=== PATIENT | male | born 1935 | race Caucasian/White ===

== ENCOUNTER → 2017-06-17 | Outpatient (CLI) | payer MEDICARE ==
--- NOTE | 2017-06-17 14:45 | EST ---
DATE OF SERVICE: 06/17/2017 TYPE OF REPORT: BREANNE STRESS TEST INDICATION: Chest pain. BASELINE HEART RATE: 66 BASELINE BLOOD PRESSURE: 130/77 MAXIMUM HEART RATE: 119 MAXIMUM BLOOD PRESSURE: 159/82 85% MPHR: 118 100% MPHR: 139 METS: 6.4 MAXIMUM STAGE REACHED: I TOTAL EXERCISE TIME: 4.39 Baseline EKG revealed normal sinus rhythm without significant ST-T changes. Patient walked on a standard Breanne protocol for 4 minutes, 40 seconds, achieved a maximum heart rate of 119 beats per minute which is 85% of predicted maximum, developed fatigue and shortness of breath but did not have angina. There was some baseline artifact but no significant ST-segment changes were noted. By EKG criteria, this is a negative stress test with limited exercise capacity. Rare PVC's were noted and patient had nondescript chest tightness that was not suggestive of angina. This is, therefore, a negative stress test with limited exercise capacity. FELTOND
== END ==
LOC: RADNMMAIN 10:38
PROVIDERS: ATTEND Internal Medicine
DX: I10 Essential (primary) hypertension (principal); E11.22 Type 2 diabetes mellitus with diabetic chronic kidney disease
CPT/HCPCS: 93017

== ENCOUNTER → 2017-07-02 | Outpatient (CLI) | payer MEDICARE ==
--- NOTE | 2017-07-02 21:30 | PN ---
DATE OF SERVICE: 07/02/2017 This patient is an 82-year-old gentleman who has been followed in the sleep center for treatment of obstructive sleep apnea/hypopnea syndrome. The patient continues to use his CPAP equipment every night for the whole night without without problems related to the pressure, but he is experiencing discomfort on the bridge of his nose secondary to his full-face mask. Sometimes his mask goes down more to the chin. He is also experiencing dryness in his mouth and lips. [place] Sleepiness Scale today is 6. MEDICATIONS: 1. Zocor. 2. Tamsulosin. 3. Enalapril. 4. Carvedilol. 5. Metformin. 6. Ditropan. 7. Flomax. 8. Aspirin. During physical exam, this pleasant 82-year-old gentleman is without distress. BP 121/60, HR 58, RR 16. Height 60-1/2 inches. Weight 263. BMI 35. Temperature 97.5. Oxygen saturation at room air 96%. HEENT: PERRLA. EOMI. Evaluation of oropharynx shows low position of soft palate. NECK: Supple. No JVD. Thyroid is not palpable. LUNGS: Clear to percussion and to auscultation. Good air exchange. No wheezing or rhonchi. HEART: S1, S2. No murmurs. ABDOMEN: Slightly obese. EXTREMITIES: No clubbing or cyanosis. INDUSTRIAL METHODS CONSULTANT: Awake, alert and oriented x3. Cranial nerves 2 to 7 intact. There is no fasciculation or atrophy noted. No focal deficits observed. IMPRESSION: 1. Obstructive sleep apnea-hypopnea syndrome. Patient continues to use his equipment every night, benefitting from treatment. He has some problems related to the mask and dryness in the mouth. 2. Obesity. 3. Hypertension. 4. Diabetes mellitus. 5. Status post right knee surgery. 6. Status post carotid endarterectomy. PLAN: 1. Patient was fitted with a different type of full-face mask, Radha View. He feels comfortable with that. Consequently I wrote a prescription for this mask. 2. Watching and losing weight. 3. Continue to use CPAP equipment every night for the whole night. 4. No driving if feeling any sleepiness. 5. Follow-up visit in one year or earlier if patient has any problem with treatment. Thank you very much for allowing me to participate in the management of your patient. Sincerely, Flaco Boyd MD, PhD, FAASM Diplomat of [place] [employer] Sleep Medicine Board by [place] [employer] [place] [employer] Group Insurance Specialist of [facility] [place] [facility]
== END | disposition home or self-care (01) ==
LOC: SLEEP 10:00
PROVIDERS: ATTEND Internal Medicine
DX: G47.33 Obstructive sleep apnea (adult) (pediatric) (principal); E66.9 Obesity, unspecified; I10 Essential (primary) hypertension; E11.9 Type 2 diabetes mellitus without complications; Z98.890 Other specified postprocedural states

== ENCOUNTER → 2018-06-30 | Outpatient (CLI) | payer MEDICARE ==
--- NOTE | 2018-06-30 17:09 | SFUN ---
SLEEP CENTER FOLLOW UP NOTE DATE OF SERVICE: 06/30/2018 83-year-old gentleman who has been followed in Sleep Center for treatment of obstructive sleep apnea-hypopnea syndrome. Patient continued to use his CPAP equipment every night for the whole night. Recently had some mild problems with his full face mask. He received different masks than he likes, but now he is fine. [place] Sleepiness Scale today is 8. I checked his CPAP unit. Usage 28/ nights for more than 4 hours every 6.7 hours. MEDICATIONS: Zocor, tamsulosin, enalapril, carvedilol, metformin, Ditropan, Flomax, aspirin. PHYSICAL EXAM: GENERAL Patient in no distress. VITAL SIGNS BP 122/66, HR 67, RR 16, height 6 feet 3/4 inch, weight 262.6, BMI 34.8, temperature 98.0, oxygen saturation on room air 96%. HEENT PERRLA, EOMI, evaluation of oropharynx showed low position of soft palate. NECK Supple, no JVD. Thyroid is not palpable. LUNGS Clear to percussion and to auscultation. Good air exchange. No wheezing or rhonchi. HEART S1, S2 regular. No murmurs, gallops, or rubs. ABDOMEN Soft and nontender. Bowel sounds are present. No organomegaly appreciated. EXTREMITIES No clubbing or cyanosis. MAGAZINE PUBLISHER Awake, alert, and oriented X3. Cranial nerves 2 to 7 intact. There is no fasciculation or atrophy. noted. No focal deficits observed. IMPRESSION: 1. Obstructive sleep apnea-hypopnea syndrome. Patient demonstrated 100% compliance with treatment benefitting from treatment. 2. Hypertension. 3. Obesity. 4. Diabetes mellitus. 5. Status post right knee surgery. 6. Status post carotid endarterectomy. PLAN: 1. Patient will continue to use CPAP equipment every night for the whole night. 2. Prescription for all necessary CPAP supplies including a fullface Radha View mask. 3. Watching and losing weight. 4. Sleep hygiene with regular time in bed for at least 8 hours. 5. No driving if feeling sleepiness. Thank you very much for allowing me to participate in management of your patient. Sincerely, Flaco Boyd MD, PhD, FAASM Diplomat of [place] [employer] [place] [employer] Medicine Insole Buffer of [facility] [place] MMODL / IJN: [id number] /
== END | disposition home or self-care (01) ==
LOC: SLEEP 15:00
PROVIDERS: ATTEND Internal Medicine
DX: G47.33 Obstructive sleep apnea (adult) (pediatric) (principal); I10 Essential (primary) hypertension; E66.9 Obesity, unspecified; E11.9 Type 2 diabetes mellitus without complications; Z68.34 Body mass index [BMI] 34.0-34.9, adult; Z96.651 Presence of right artificial knee joint; Z79.899 Other long term (current) drug therapy; Z79.84 Long term (current) use of oral hypoglycemic drugs; Z79.82 Long term (current) use of aspirin; Z99.89 Dependence on other enabling machines and devices; Z98.890 Other specified postprocedural states

== ENCOUNTER → 2018-08-13 | Outpatient (CLI) | payer MEDICARE ==
--- NOTE | 2018-08-14 14:15 | MR ---
EXAMINATION TYPE: MR knee LT wo con DATE OF EXAM: 08/13/2018 COMPARISON: Outside radiographs dated 07/21/2018 HISTORY: Pain in left knee TECHNIQUE: Multiplanar, multisequence imaging of the left knee is performed without IV contrast. FINDINGS: MEDIAL MENISCUS: Is a complex tear of the medial meniscus with oblique component involving the flame planer ior horn and longitudinal component involving the meniscal body with extent into the posterior horn a nd anterior horn. There is associated 4 mm meniscal extrusion and a 6 mm meniscal fragment seen later al to the medial tibial plateau caudal to the extruded meniscus. Radial tear is seen of the anterior horn and coronal image 17. LATERAL MENISCUS: Anterior and posterior horns are intact without tear. As increased signal of the po sterior horn of the lateral meniscus without continuity to the articular surface and compatible with meniscal degeneration. CRUCIATE LIGAMENTS: The anterior and posterior cruciate ligaments are intact. Increased signal is see n superficial and deep to the medial collateral ligament with subcutaneous edema however there is no discontinuity of the medial collateral ligament. There is also slight increased signal of the posteri or and deep fibers of the lateral collateral ligament COLLATERAL LIGAMENTS: The medial collateral ligament and lateral collateral ligament complex are inta ct however there is thickening and increased signal of the anterior cruciate ligament with a slight a bnormal angle.. EXTENSOR MECHANISM: Visualized quadriceps and patellar tendons are intact. EFFUSION: No significant suprapatellar joint effusion. POPLITEAL CYST: There is a small popliteal/Merlos's cyst with fluid extending along the medial aspect of the medial head of the gastrocnemius muscle although there is no abnormal signal within the gastr ocnemius. TRICOMPARTMENT SPACES: Mild joint space narrowing is seen of the medial compartment and patellofemora l compartment. Enthesophytes and subchondral cysts are noted of the quadriceps insertion. CARTILAGE: There is abnormal signal and cartilaginous thinning of the patellofemoral cartilage withou t focal defect. There is near complete cartilaginous loss of the weightbearing surface of the medial compartment. Small fissures are seen of the lateral compartment femoral cartilage in its weightbearin g surface as well as a partial defect of 1.7 cm anteriorly. BONE MARROW SIGNAL: No focal abnormal marrow signal is appreciated. OTHER: Fabella is incidentally seen. There is prepatellar soft tissue swelling. IMPRESSION: 1. Complex tear of the medial meniscus involving the body, posterior horn, and anterior horn with ass ociated meniscal extrusion and sequestered disc fragment as described above. 2. Partial low-grade tear of the anterior cruciate ligament. 3. Low-grade MCL and LCL strain, subcutaneous edema, and medial collateral ligament bursitis. 4. Mild tricompartmental arthropathy and chondrosis.
== END | disposition home or self-care (01) ==
LOC: RADMRIMAIN 13:06
PROVIDERS: ATTEND Orthopaedic Surgery
DX: S83.232A Complex tear of medial meniscus, current injury, left knee, initial encounter (principal); S83.512A Sprain of anterior cruciate ligament of left knee, initial encounter; M17.12 Unilateral primary osteoarthritis, left knee; S86.912A Strain of unspecified muscle(s) and tendon(s) at lower leg level, left leg, initial encounter

== ENCOUNTER 2018-09-09 06:13 | Day surgery (SDC) | payer MEDICARE ==
[2018-09-03 14:19] VITALS: BMI 33.3
--- NOTE | 2018-09-08 15:08 | HP ---
HISTORY AND PHYSICAL DATE OF SURGERY: 09/09/2018 Trae Mercado is an 83-year-old patient seen with progressive left knee pain. We discussed options regarding treatment, he elected to proceed with arthroscopy. Consent was obtained, clearance was provided by Dr. Santana. PAST MEDICAL HISTORY: Hypertension, hyperlipidemia, [id number] diabetes. PAST SURGICAL HISTORY: Right knee arthroscopy. DAILY MEDICATIONS: 1. Enalapril/hydrochlorothiazide. 2. Flomax. 3. Gabapentin. 4. Januvia. 5. Zocor. ALLERGIES: None. SOCIAL HISTORY: Patient denies tobacco use. PHYSICAL EVALUATION LEFT KNEE: Range of motion is -3 to 120 degrees. Mild effusion. Tenderness medial joint line. Positive medial Saran's. Ligaments stable. Hip rotation without pain. Distal neurovascular exam is intact. Radiographs of the left knee revealed moderate osteoarthritis of left knee. MRI revealed medial meniscal tear and mild osteoarthritis. IMPRESSION: 1. Internal derangement, left knee with medial meniscal tear. 2. Hypertension. 3. Hyperlipidemia. PLAN: Left knee arthroscopy with partial meniscectomy and debridement. MMODL / IJN: [id number] /
[~2018-09-09 06:13] MED LIST: DEXAMETHASONE SOD PHOSPHATE 10 MG/ML 1 ML VIAL IV ONE; HYDROmorphone 1 MG/ML 1 ML SYRINGE IVP PRN; LACTATED RINGERS 1,000 ML IV SCH; ONDANSETRON 4 MG/2 ML VIAL IVP ONE; fentaNYL (PF) 50 MCG/ML 2 ML AMP IV PRN
[2018-09-09] MEDS ORDERED: LIDOCAINE 1% 20 ML VIAL (10MG/ML) FOR IV START INTRADERMA ONE (06:53)
[2018-09-09 06:56] LABS: Glucose,Whole Blood 131 mg/dL (75-99)
[2018-09-09] MEDS ORDERED: NEOSTIGMINE 1 MG/ML 10 ML VIAL ONE (07:43)
[2018-09-09] MEDS ORDERED: GLYCOPYRROLATE 0.2 MG/ML 2 ML VIAL ONE (07:43)
[2018-09-09] MEDS ORDERED: SUCCINYLCHOLINE CHLORIDE 100 MG/5 ML SYR IV ONE (07:43)
[2018-09-09] MEDS ORDERED: PROPOFOL 10 MG/ML 20 ML VIAL IV ONE (07:43)
[2018-09-09] MEDS ORDERED: ROCURONIUM BROMIDE 10 MG/ML 10 ML VIAL IV ONE (07:43)
[2018-09-09] MEDS ORDERED: LIDOCAINE 1% INJ 10MG/ML (20 ML MDV) ONE (07:43)
[2018-09-09] MEDS ORDERED: BUPIVACAIN-EPI 0.25%-1:200,000 30 ML VIAL INTRAARTIC ONE (07:58)
[2018-09-09] MEDS ORDERED: LACTATED RINGERS 1,000 ML IV ONE (08:21)
--- NOTE | 2018-09-09 08:36 | P.OP ---
Date of Procedure: 09/09/18 Preoperative Diagnosis: Internal derangement left knee Postoperative Diagnosis: 1. Tear medial and lateral meniscus left knee 2. Reactive synovitis medial and suprapatellar compartments left knee Procedure(s) Performed: 1. Arthroscopic partial medial and lateral meniscectomy left knee 2. Arthroscopic partial synovectomy medial and suprapatellar compartments left knee Anesthesia: JANET, local Surgeon: Gunner Sainz Estimated Blood Loss (ml): 5 Pathology: none sent Condition: stable Disposition: PACU Indications for Procedure: 83-year-old patient seen with progressive left knee pain. After having treatment options discussed, he elected to proceed with arthroscopy. Operative Findings: See description of procedure Description of Procedure: Patient was taken to the operative suite. Patient underwent a general anesthetic by the department of anesthesia. Patient was given preoperative antibiotics. The left lower extremity was placed in a well-padded arthroscopic leg hodgson. The left leg was prepped and draped in the normal sterile orthopedic fashion. A lateral parapatellar and suprapatellar incision was made. Trochars were inserted. Arthroscopy was initiated. Suprapatellar pouch revealed diffuse thick reactive synovitis. The patellofemoral joint appeared to articulate congruently. There was grade 1/2 chondromalacia of the patellofemoral joint with no osteochondral tears present. The scope was guided into the medial gutter. No loose bodies or plica were identified. The scope was then guided into the medial compartment. A medial parapatellar incision was made. Trocar inserted followed by probe. There was a complex tear involving the posterior horn and midbody medial meniscus. There was thick reactive synovitis anteriorly. There were grade 1/2 chondromalacia changes of medial compartment with no osteochondral tears present. I performed a partial medial meniscectomy down to stable tissue. I performed a partial synovectomy decompressing the reactive synovitis. The residual meniscus was stable. There was good decompression of the synovitis. Scope and probe were then guided into the intercondylar notch. Cruciates were identified, probed and found to be stable. The scope and probe were then guided into lateral compartment. There was a radial tear mid body and small radial tears posterior horn lateral meniscus. There were grade 1/2 chondromalacia changes lateral compartment with no osteochondral tears present. No loose bodies. I performed a partial lateral meniscectomy down to stable tissue. The residual meniscus was stable. The scope was in guided back into the suprapatellar compartment. I introduced a motorized shaver into the suprapatellar compartment. I debrided some piecemeal fragments of meniscus I encountered. I performed a partial synovectomy decompressing reactive synovitis. The shaver was removed. I took one more look on the entire knee, no residual debris. Instruments were now removed from the joint. The joint was infiltrated with .25% Marcaine. Steri- Strips were applied to the portal sites. Sterile dressings were applied. The patient was placed into a CANDACE hose. No tourniquet was utilized. The patient was awakened, transferred to a bed and taken to recovery stable satisfactory condition.
[2018-09-09 08:40] VITALS: TEMP 97.8
[2018-09-09 08:46] VITALS: RESP 16
[2018-09-09 09:03] LABS: Glucose,Whole Blood 181 mg/dL (75-99)
[2018-09-09 09:44] VITALS: BP 124/56; PULSE 56
[2018-09-09 10:08] LABS: Glucose,Whole Blood 204 mg/dL (75-99)
== END 2018-09-09 10:20 | disposition home or self-care (01) ==
LOC: OR 06:13
PROVIDERS: ATTEND Orthopaedic Surgery
DX: S83.242A Other tear of medial meniscus, current injury, left knee, initial encounter (principal); S83.282A Other tear of lateral meniscus, current injury, left knee, initial encounter; X58.XXXA Exposure to other specified factors, initial encounter; M65.862 Other synovitis and tenosynovitis, left lower leg; M94.262 Chondromalacia, left knee; I10 Essential (primary) hypertension; E78.5 Hyperlipidemia, unspecified; N40.0 Benign prostatic hyperplasia without lower urinary tract symptoms; E11.9 Type 2 diabetes mellitus without complications; Z79.84 Long term (current) use of oral hypoglycemic drugs; Z79.899 Other long term (current) drug therapy
CPT/HCPCS: 29880; J1100; J2710; J2405; J2001; J1170; J0330; J2704

== ENCOUNTER → 2019-06-16 | Outpatient (CLI) | payer MEDICARE ==
--- NOTE | 2019-06-16 16:00 | PN ---
PROGRESS NOTE DATE OF SERVICE: 06/16/2019 84-year-old gentleman has been followed in Sleep Center for treatment of obstructive sleep apnea-hypopnea syndrome. The patient continued to use his CPAP equipment every night for the whole night. He may try to use nasal mask instead of full-face mask. Presently, he is using a Radha View full-face mask. I checked his CPAP unit. The patient using it every night 27/30 nights more than 4 hours. Average usage is 6 hours. CPAP is 14 cm of water. Starting pressure is 7 cm of water. The machine does not have information about apnea-hypopnea index. [place] Sleepiness Scale is 3. MEDICATIONS: Tamsulosin, Zocor, enalapril, carvedilol, metformin, Flomax, Ditropan, aspirin. PHYSICAL EXAM: Patient in no distress. VITAL SIGNS: BP is 91/55, HR 70, RR 16, height 6 feet, 0, weight 263, body mass index . Weight is about the same as one year ago. Temperature 98.4. Oxygen saturation on room air 95%. HEENT: Oropharynx low position of the soft palate. Mallampati 3. Neck Supple, no JVD. Thyroid is not palpable. LUNGS Clear to percussion and to auscultation. Good air exchange. No wheezing or rhonchi. HEART S1, S2 regular. No murmurs, gallops, or rubs. ABDOMEN: Obese. Soft and nontender. Bowel sounds are present. No organomegaly appreciated. EXTREMITIES No clubbing or cyanosis. DRAMATIC COACH Awake, alert, and oriented X3. Cranial nerves 2 to 7 intact. There is no fasciculation or atrophy. noted. No focal deficits observed. IMPRESSION: 1. Obstructive sleep apnea-hypopnea syndrome. Patient demonstrated great compliance with treatment benefitting from treatment. 2. Hypertension. 3. Obesity. 4. Diabetes mellitus. 5. Status post right knee surgery. 6. Status post carotid endarterectomy. PLAN: 1. Patient will continue to use CPAP equipment every night for the whole night. 2. Losing weight. 3. We will fit patient with nasal pillows, mask. The patient will try to use this mask. 4. Sleep hygiene with regular time in bed for at least 8 hours. 5. No driving if feeling sleepiness. Thank you very much for allowing me to participate in management of your patient. Sincerely, Flaco Boyd MD, PhD, FAASM Diplomat of [place] [employer] Special[employer] [place] [employer] Medicine Administrator Social Welfare of [facility] [place] MMMAHI / JUWAN: [id number] /
== END | disposition home or self-care (01) ==
LOC: SLEEP 13:24
PROVIDERS: ATTEND Internal Medicine
DX: G47.33 Obstructive sleep apnea (adult) (pediatric) (principal); I10 Essential (primary) hypertension; E66.9 Obesity, unspecified; E11.9 Type 2 diabetes mellitus without complications; Z68.35 Body mass index [BMI] 35.0-35.9, adult; Z99.89 Dependence on other enabling machines and devices; Z96.651 Presence of right artificial knee joint; Z98.890 Other specified postprocedural states; Z79.82 Long term (current) use of aspirin; Z79.84 Long term (current) use of oral hypoglycemic drugs; Z79.899 Other long term (current) drug therapy

== ENCOUNTER → 2020-09-20 | Outpatient (CLI) | payer MEDICARE ==
--- NOTE | 2020-09-20 18:45 | SFUN ---
SLEEP CENTER FOLLOW UP NOTE DATE OF SERVICE: 09/20/2020. 85-year-old gentleman has been followed in Sleep Center for treatment of obstructive sleep apnea-hypopnea syndrome. The patient successfully continues to use his CPAP equipment every night. He likes it. He sleeps well with that and the only discomfort patient experiencing because of position of the tube and that is why recently he tried to change masks from regular fullface mask to Dreamwear mask which has tube connection on the upper part of the head. [place] Sleepiness Scale today is 4 which is totally normal. I checked patient CPAP unit. Usage is 27/30 nights for more than 4 hours with average use of 7.4 hours per night. CPAP pressure is 14 cm of water. The machine does not have information about apnea-hypopnea index. MEDICATIONS: Zocor 20 mg once a day. Flomax 0.4 mg once a day. Enalapril 20 mg twice a day. Carvedilol 3.125 mg daily, Januvia 50 mg daily, aspirin. PHYSICAL EXAM: Patient in no distress, BP 122/54, HR around 100, RR 15, height 6 feet, weight 259, BMI 33.7, temperature 97.7, oxygen saturation on room air, 99%. Oropharynx low position of soft palate, Mallampati 3. NECK: Supple, no JVD. Thyroid is not palpable. LUNGS: Clear to percussion and to auscultation. Good air exchange. No wheezing or rhonchi. HEART: S1, S2 regular. No murmurs, gallops, or rubs. ABDOMEN: Soft and nontender. Bowel sounds are present. No organomegaly appreciated. EXTREMITIES: No clubbing or cyanosis. OPERATING ROOM ORDERLY: Awake, alert, and oriented X3. Cranial nerves 2 to 7 intact. There is no fasciculation or atrophy. noted. No focal deficits observed. IMPRESSION: 1. Obstructive sleep apnea-hypopnea syndrome. Patient demonstrated good compliance with treatment, benefitting from treatment. 2. Hypertension. 3. Obesity. 4. Diabetes mellitus. 5. Status post right knee surgery. 6. Status post carotid endarterectomy. PLAN: 1. Polysomnography for evaluation of patient's breathing during sleep. 2. CPAP/BiPAP titration if sleep study confirms obstructive sleep apnea-hypopnea syndrome. 3. Preferable position during sleep on the side. 4. No driving if patient feels any sleepiness. 5. I will see patient for follow up visit to explain results of testing and following plan. We will try different size of Dreamwear mask. Thank you very much for allowing me to participate in management of your patient. Sincerely, Flaco Boyd MD, PhD, FAASM Diplomat of [place] [employer] [place] [employer] Tugboat Engineer of [facility] [place] MMODL / IJN: [id number] /
== END | disposition home or self-care (01) ==
LOC: SLEEP 10:43
PROVIDERS: ATTEND Internal Medicine
DX: G47.33 Obstructive sleep apnea (adult) (pediatric) (principal); I10 Essential (primary) hypertension; E66.9 Obesity, unspecified; E11.9 Type 2 diabetes mellitus without complications; Z99.89 Dependence on other enabling machines and devices; Z98.890 Other specified postprocedural states